=== PATIENT | female | born 1945 | race Caucasian/White ===

== ENCOUNTER 2020-02-15 09:45 | Outpatient (CLI) | payer MEDICARE, SELFPAY ==
--- NOTE | 2020-02-15 10:01 | MM_ITS ---
WS: [id number] BILATERAL DIGITAL SCREENING MAMMOGRAPHY WITH CAD CLINICAL INFORMATION: SCREEN HISTORY: Screening mammogram. Right breast pain COMPARISON: TECHNIQUE: Bilateral CC and MLO views. FINDINGS: Scattered fibroglandular densities bilaterally. No suspicious focal mass, asymmetry, calcifications, or architectural distortion. No evidence of malignancy. A few stable nodular asymmetries right breast unchanged. Vascular calcification. MM/[id number] IMPRESSION: BI-RADS: 2-Benign FOLLOW UP: 1 Year Follow-up Recommend return to annual screening mammography.
== END 2020-02-15 09:46 | disposition home or self-care (01) ==
LOC: RADSHAW 09:51
PROVIDERS: PCP Physician Assistant Medical; Visit Provider Physician Assistant Medical
DX: Z12.31 Encounter for screening mammogram for malignant neoplasm of breast (principal)
CPT/HCPCS: 77067

== ENCOUNTER 2021-12-17 09:41 | Outpatient (CLI) | payer MEDICARE, SELFPAY ==
--- NOTE | 2021-12-17 09:59 | MM_ITS ---
WS: [id number] BILATERAL SCREENING DIGITAL BREAST TOMOSYNTHESIS MAMMOGRAM WITH CAD HISTORY: SCREENING COMPARISON: 02/15/2020, 12/15/2018 Bilateral CC and MLO views with tomosynthesis and synthetic mammography submitted. Computer aided det ection analyzed. Breast composition: There are scattered areas of fibroglandular density. No suspicious masses, microc alcifications or architectural distortion. Scattered nodules are stable or decreased in size since e prior study. MM/[place] [id number] IMPRESSION: BI-RADS: 2-Benign FOLLOW UP: 1 Year Follow-up
== END 2021-12-17 09:42 | disposition home or self-care (01) ==
LOC: RAD 09:47
PROVIDERS: PCP Physician Assistant Medical; Visit Provider Family Medicine
DX: Z12.31 Encounter for screening mammogram for malignant neoplasm of breast (principal)
CPT/HCPCS: 77063; 77067

== ENCOUNTER 2023-01-30 17:20 | Emergency (ER) | payer MEDICARE, MEDICAID, SELFPAY ==
[2023-01-30 17:22] VITALS: BP 201/95; RESP 18; TEMP 36.8; O2SAT 98; BMI 24.1
--- NOTE | 2023-01-30 17:26 | CTR_ITS ---
PROCEDURE INFORMATION: Exam: CT Head Without Contrast Exam date and time: 01/30/2023 5:33 PM Age: 77 years old Clinical indication: Injury or trauma; Fall; Bleeding/hemorrhage and blunt trauma (contusions or hematomas); Without loss of consciousness; Injury date: ; Additional info: Fall, hematoma, laceration, on plavix TECHNIQUE: Imaging protocol: Computed tomography of the head without contrast. Radiation optimization: All CT scans at this facility use at least one of these dose optimization techniques: automated exposure control; mA and/or kV adjustment per patient size (includes targeted exams where dose is matched to clinical indication); or iterative reconstruction. REPORTING DATA: Count of CT and Cardiac NM exams in prior 12 months: This patient has received 0 known CTs and 0 known cardiac nuclear medicine studies in the 12 months prior to the current study. COMPARISON: No relevant prior studies available. RADIATION DOSE METRICS: Total DLP (mGy-cm): 965.4 FINDINGS: Brain: There is mild cortical atrophy. Low-density changes in the white matter are consistent with nonspecific small vessel chronic ischemic change. There is no intracranial mass, hemorrhage or edema. Cerebral ventricles: No ventriculomegaly. Paranasal sinuses: Visualized sinuses are unremarkable. No fluid levels. Mastoid air cells: Visualized mastoid air cells are well aerated. Bones/joints: Unremarkable. No acute fracture. Soft tissues: There is a small focal contusion and scalp hematoma in the frontal scalp just to the right of midline. There is a scalp laceration with large underlying scalp hematoma and scalp swelling in the high left parietal region near the vertex. There is some bubbles of air within the hematoma from the laceration. CT/CT head wo con* [id number] IMPRESSION: 1. Scalp contusions and scalp laceration 2. No acute intracranial finding.
--- NOTE | 2023-01-30 17:26 | CTR_ITS ---
PROCEDURE INFORMATION: Exam: CT Cervical Spine Without Contrast Exam date and time: 01/30/2023 5:33 PM Age: 77 years old Clinical indication: Injury or trauma; Fall; Blunt trauma; Injury date: 01/30/2023; Additional info: Fall neck pain TECHNIQUE: Imaging protocol: Computed tomography of the cervical spine without contrast. Radiation optimization: All CT scans at this facility use at least one of these dose optimization techniques: automated exposure control; mA and/or kV adjustment per patient size (includes targeted exams where dose is matched to clinical indication); or iterative reconstruction. REPORTING DATA: Count of CT and Cardiac NM exams in prior 12 months: This patient has received 0 known CTs and 0 known cardiac nuclear medicine studies in the 12 months prior to the current study. COMPARISON: No relevant prior studies available. RADIATION DOSE METRICS: Total DLP (mGy-cm): 532.4 FINDINGS: Bones/joints: There is degenerative change in the cervical spine with severe narrowing of the disc spaces between C3 and C7. There is small anterior osteophytes. There is uncovertebral hypertrophy which causes mild foraminal narrowing at multiple levels. There are degenerative changes in the facet joints at C2-C3, C3-C4 and C4-C5 on the right. No fracture is identified. Lungs: Lung apices are normal. Soft tissues: Prevertebral soft tissues are unremarkable. CT/CT cervical spin wo con* [id number] IMPRESSION: 1. No fracture is identified. 2. Degenerative changes.
--- NOTE | 2023-01-30 17:27 | W.ED.FALL ---
HPI - Fall General: Chief Complaint: Fall Stated Complaint: FALL Time Seen by Provider: 01/30/23 17:21 History of Present Illness: Presents to the ER by EMS with complaints of fall. Patient tripped over a tea kettle and hit her head on the edge of the door frame. Patient has 2 hematomas one on the top of her scalp 1 on her forehead as well as 2 lacerations on her scalp. Patient is having some neck pain and is placed in a c-collar per EMS. Patient is on Plavix as an anticoagulant. Review of Systems General: Reports: 10 or more systems reviewed and unremarkable except in HPI and below Physical Exam Const: COMMON NORMALS: no acute distress, average body habitus, patient oriented x3, no limitations, healthy appearing, alert and well nourished HENMT: OTHER: Large hematoma on superior posterior occipital region, also on right forehead region. Hair is matted with diffuse blood EMS noted 2 lacerations. Patient is being cleaned up currently Eye: COMMON NORMALS: Equal, round and reactive pupils present, EOMs intact bilaterally, conjunctivae normal and no scleral icterus CONJUNCTIVA: Yes conjunctivae normal PUPIL: Yes Equal, round and reactive pupils present Neck/C-Spine: COMMON NORMALS: no JVD OTHER: Patient is in c-collar per EMS after complaining of neck pain. Chest: COMMONS NORMALS: normal inspection of the chest and normal palpation of entire chest wall Resp: COMMON NORMALS: normal respiratory effort, No retractions, No use of accessory muscles and clear to auscultation bilaterally AUSCULTATION: clear to auscultation bilaterally Cardio: COMMON NORMALS: no JVD, regular rate, regular rhythm, S1 normal heart sound present, S2 normal heart sound present, No gallops present (Cardio), No clicks present (Cardio), No murmurs present (Cardio) (2/6 to 3/6 systolic ejection murmur) and No rub (Cardio) RATE: regular rate RHYTHM: regular rhythm HEART SOUNDS: S1 normal heart sound present and S2 normal heart sound present GI: COMMON NORMALS: Normal to inspection, nondistended, normoactive bowel sounds present, Soft to palpation, non-tender, No hepatosplenomegaly present and no masses PALPATION: Yes Soft to palpation and Yes No hepatosplenomegaly present : COMMON NORMALS: Yes no CVA tenderness BLADDER/KIDNEY EXAM: Yes no CVA tenderness Back/Pelvis: COMMON NORMALS: no CVA tenderness Neuro: COMMON NORMALS: patient oriented x3 SENSORIUM/ORIENTATION: Yes alert Procedures Laceration Laceration 1: Site: scalp Size (cm): 6 Description: irregular Depth: simple, single layer Skin layer closed with: other (Mindy) Course Vital Signs: Vital signs: Vital Signs Temperature 98.2 F 01/30/23 17:22 Pulse Rate 60 01/30/23 20:00 Respiratory Rate 14 01/30/23 18:22 Blood Pressure 183/73 01/30/23 20:00 Pulse Oximetry 98 01/30/23 20:00 Oxygen Delivery Me thod Room Air 01/30/23 20:00 MDM - Fall Medical Decision Making Patient tripped over to cattle and hit her head on the edge of the door frame. Patient has 2 large hematomas on her head as well as lacerations. Patient will have a CT scan of the head and neck. Anticipate discharge home possible mindy in scalp lacerations. Patient had a large laceration irregular pattern on her hematoma on the posterior scalp region. Clot was expressed so the edges would come back together shirt cleaner. Approximately 14 mindy was inserted to try to get the edges approximated as best as possible. Bleeding was controlled patient tolerated procedure well. Patient will be discharged home to follow-up with her PCP in approximately 10 to 12 day for removal. Differential Diagnosis Likely concussion without loss of consciousness; Unlikely syncope, dislocation of shoulder region, fracture of wrist, compression fracture or concussion with loss of consciousness Medical Records I reviewed the patient's medical records. Lab Data I reviewed the patient's lab results. Radiology Impressions Cervical Spine CT 01/30/23 17:26 IMPRESSION: 1. No fracture is identified. 2. Degenerative changes. Head CT 01/30/23 17:26 IMPRESSION: 1. Scalp contusions and scalp laceration 2. No acute intracranial finding. Discharge Plan Discharge Patient Disposition: Home Clinical Impression: Complex laceration of scalp Fall Qualifiers: Encounter type: initial encounter Qualified Code(s): W19.XXXA - Unspecified fall, initial encounter Scalp hematoma Qualifiers: Encounter type: initial encounter Qualified Code(s): S00.03XA - Contusion of scalp, initial encounter Condition: Stable Discharge Orders: Discharge ED (Routine); Ordered 01/30/23 Ordered By: Jag Cronin Referrals: Fito Jimenez [Primary Care Provider] - 1 week Patient Instructions: Scalp Laceration, Contusion in Adults (ED), Hematoma (ED) Activity Restrictions/Additional Instructions: Please follow-up with your family practice doctor in approximately 10 to 14 days for further reevaluation and potential staple removal. Please do not wash her hair for 24 hours. Then you can wash it in the shower with gentle scrubbing. You are on Plavix as a blood thinner you may continue to bleed. If the bleeding is uncontrolled please return to the ER for further evaluation and treatment. Your laceration was rather complex and closing. Mindy were used to approximate the edges as good as possible. Coding Level of Care Code ED De Ionizer Operator for Katerin Kendall
[2023-01-30 18:22] VITALS: RESP 14; O2SAT 97
[2023-01-30] MEDS: morphine 4 mg/mL SDV 1 mL 2 MG IVP ×2 (18:22→19:03)
[2023-01-30 18:34] VITALS: BP 167/67; O2SAT 97
[2023-01-30 19:00] VITALS: BP 167/82; PULSE 60; O2SAT 98
[2023-01-30 20:00] VITALS: BP 183/73; PULSE 60; O2SAT 98
[2023-01-30 20:51] VITALS: BP 150/74; PULSE 60; O2SAT 98
== END 2023-01-30 20:52 | disposition home or self-care (01) ==
PROVIDERS: Emergency Provider Emergency Medicine; PCP Physician Assistant Medical
DX: S00.03XA Contusion of scalp, initial encounter (principal); S01.01XA Laceration without foreign body of scalp, initial encounter; W18.09XA Striking against other object with subsequent fall, initial encounter
CPT/HCPCS: 12002; 70450; 72125; 96374; 96375; 99285; J2270

== ENCOUNTER 2023-04-08 10:17 | Outpatient (CLI) | payer MEDICARE, MEDICAID, SELFPAY ==
--- NOTE | 2023-04-08 10:25 | MM_ITS ---
WS: [id number] BILATERAL SCREENING DIGITAL TOMOSYNTHESIS MAMMOGRAM WITH CAD HISTORY: SCREENING COMPARISON: 12/17/2021 and 02/15/2020 Bilateral CC and MLO views with tomosynthesis and synthetic mammography submitted. Computer aided det ection analyzed. Breast composition: There are scattered areas of fibroglandular density. No suspicious masses, microc alcifications or architectural distortion. Benign calcifications in each breast. IMPRESSION: MM/[place] [id number] BI-RADS: 2-Benign FOLLOW UP: 1 Year Follow-up
== END 2023-04-08 10:18 | disposition home or self-care (01) ==
PROVIDERS: PCP Family Medicine; Visit Provider Family Medicine
DX: Z12.31 Encounter for screening mammogram for malignant neoplasm of breast (principal)
CPT/HCPCS: 77063; 77067

== ENCOUNTER 2024-04-21 11:56 | Outpatient (CLI) | payer MEDICARE, MEDICAID, SELFPAY ==
--- NOTE | 2024-04-21 12:02 | MM_ITS ---
WS: [id number] BILATERAL 3D TOMOSYNTHESIS DIGITAL DIAGNOSTIC MAMMOGRAPHY WITH CAD CLINICAL INFORMATION: BREASTS PAIN RIGHT HISTORY: RIGHT breast pain and soreness COMPARISON: 2022 TECHNIQUE: Bilateral CC, MLO, and ML views. FINDINGS: Scattered fibroglandular densities bilaterally. Areas of pain indicated with markers. Normal underlyi ng parenchymal tissue. Ultrasound of these areas is pending. Vascular calcification. LEFT breast is otherwise unchanged in appearance. Cardiac pacer partially vis ualized. ULTRASOUND BREAST RIGHT TECHNIQUE: Ultrasound right breast focused area of concern. CLINICAL INFORMATION: BREASTS PAIN RIGHT FINDINGS: Ultrasound RIGHT breast in the areas of pain 7 to 8 o'clock position patient directed. No suspicious abnormalities in the area of concern. Normal underlying parenchymal tissue. No cystic or solid lesion s of target for biopsy. Recommend return to annual screen mammography. MM/MM diag tomosynthesis [id number] IMPRESSION: DENSITY: There are scattered areas of fibroglandular density. BI-RADS: 2 - Benign. FOLLOW UP: 1 Year Follow-up Recommend return to annual screening mammography.
== END 2024-04-21 11:57 | disposition home or self-care (01) ==
LOC: RAD 11:57
PROVIDERS: PCP Family Medicine; Visit Provider Family Medicine
DX: N64.4 Mastodynia (principal); R92.323 Mammographic fibroglandular density, bilateral breasts; R92.1 Mammographic calcification found on diagnostic imaging of breast; Z95.0 Presence of cardiac pacemaker
CPT/HCPCS: 76642; 77062; G0279

== ENCOUNTER 2025-04-24 09:40 | Outpatient (CLI) | payer MEDICARE, MEDICAID, SELFPAY ==
--- NOTE | 2025-04-24 09:48 | MM_ITS ---
WS: [id number] BILATERAL 3D TOMOSYNTHESIS DIGITAL SCREENING MAMMOGRAPHY WITH CAD CLINICAL INFORMATION: SCREENING HISTORY: Screening mammogram. No current complaints. COMPARISON: 2023 TECHNIQUE: Bilateral CC and MLO views. FINDINGS: Scattered fibroglandular densities bilaterally. No suspicious focal mass, asymmetry, calcifications, or architectural distortion. No evidence of malignancy. Vascular calcification. Cardiac pacer. Intramammary lymph nodes LEFT breast. MM/MM scr BI tomosynthesis [id number] IMPRESSION: DENSITY: There are scattered areas of fibroglandular density. BI-RADS: 2 - Benign. FOLLOW UP: 1 Year Follow-up Recommend return to annual screening mammography.
== END 2025-04-24 09:41 | disposition home or self-care (01) ==
LOC: RAD 09:41
PROVIDERS: PCP Family Medicine; Visit Provider Family Medicine
DX: Z12.31 Encounter for screening mammogram for malignant neoplasm of breast (principal); R92.323 Mammographic fibroglandular density, bilateral breasts; R92.1 Mammographic calcification found on diagnostic imaging of breast; R59.0 Localized enlarged lymph nodes
CPT/HCPCS: 77063; 77067